=== PATIENT | male | born 1990 | race Caucasian/White ===

== ENCOUNTER 2021-10-26 17:55 | Emergency (ER) | payer BC, MEDICAID ==
[~2021-10-26] VITALS: Ht 182.8 cm; Wt 86.1 kg
[~2021-10-26 17:55] MED LIST: HYDR-4226 PO; NAPR-1071 PO
[2021-10-26 18:00] VITALS: BP 146/101
--- NOTE | 2021-10-26 18:08 | ED Fall/Injury ---
General Stated Complaint: FALL Source: patient Exam Limitations: no limitations (MUSHTAQ ZEPEDA APRN) History of Present Illness Date Seen by Provider: Oct 26, 2021 Time Seen by Provider: 18:06 Initial Comments This is a well-appearing 31-year-old male who presented to the ER via POV with his dad for concerns of elbow pain in his right elbow. States that he was at camp yesterday when he tripped and fell on the concrete. He initially applied ice today he has significant swelling and bruising to the area. Only has pain located at his elbow whenever he extends his arm out. At rest he denies any pain. Denies any numbness or tingling distal to the injury. Denies hitting his head or neck. No other injuries reported during the fall. (MUSHTAQ ZEPEDA APRN) Allergies and Home Medications Allergies Coded Allergies: No Known Drug Allergies (Unverified , 08/01/15) Patient Home Medication List Home Medication List Reviewed: Yes (MUSHTAQ ZEPEDA APRN) Hydrocodone/Acetaminophen (Hydrocodone/Acetaminophen 5 MG/325 MG TAB) 1 Each Tablet, 1 EACH PO Q4H PRN for PAIN Prescribed by: DILEEP MADISON on 08/01/15 1123 Naproxen (Naprosyn) 500 Mg Tablet, 500 MG PO BID PRN for PAIN Prescribed by: DILEEP MADISON on 08/01/15 1123 Review of Systems Review of Systems Constitutional: no symptoms reported Eyes: No Symptoms Reported Ears, Nose, Mouth, Throat: no symptoms reported Respiratory: no symptoms reported Cardiovascular: no symptoms reported Gastrointestinal: no symptoms reported Musculoskeletal: see HPI Skin: see HPI Psychiatric/Neurological: Pre-Existing Deficit (MUSHTAQ ZEPEDA APRN) Past Nineaxn-Hlortd-Kbgtkh Hx Seasonal Allergies Seasonal Allergies: No (MUSHTAQ ZEPEDA APRN) Past Medical History Eye Surgery Reproductive Disorders: No (MUSHTAQ ZEPEDA APRN) Physical Exam Vital Signs Vital Signs - First Documented (JOSE MARIA CARLSON DO) Vital Signs Capillary Refill : (MUSHTAQ ZEPEDA APRN) Height, Weight, BMI Height: 5'8" Weight: 180lbs. oz. 81.837391jv; 27.37 BMI Method: General Appearance: WD/WN, no apparent distress HEENT: PERRL/EOMI, normal ENT inspection, TMs normal, pharynx normal Neck: full range of motion, supple, normal inspection Cardiovascular: regular rate, rhythm, no murmur Respiratory: lungs clear, normal breath sounds, no respiratory distress, no accessory muscle use Peripheral Pulses: 2+ Radial Pulses (R), 2+ Radial Pulses (L) Gastrointestinal: normal bowel sounds, non tender, soft Back: normal inspection, no vertebral tenderness Neurologic/Psychiatric: no motor/sensory deficits, alert, normal mood/affect, oriented x 3 Skin: normal color, warm/dry Right Elbow: Significant swelling and bruising around elbow and proximal forearm and distal humerus. Point tenderness at Olecranon process. (MUSHTAQ ZEPEDA APRN) Progress/Results/Core Measures Results/Orders Medications Given in ED Current Medications Medications Dose Ordered Sig/German Route Start Time Stop Time Status Last Admin Dose Admin Acetaminophen/ Hydrocodone Bitart 1 ea Q6H PRN PO 10/26/21 19:00 10/26/21 19:03 DC 10/26/21 19:02 1 EA (JOSE MARIA CARLSON DO) Vital Signs/I&O 10/26/21 10/26/21 18:00 18:00 Temp 37.6 37.6 Pulse 105 105 Resp 18 18 B/P (MAP) 146/101 (116) 146/101 (116) Pulse Ox 98 98 O2 Delivery Room Air (ALDOJOSE MARIA K DO) Progress Progress Note : Progress Note Reviewed imaging with orthopedic surgeon Dr. Madera, recommended posterior long- arm splint and follow-up in office. Plan of care reviewed with dad they are agreeable with plan. We will send home with take-home pack of hydrocodone. Neurovascular intact pre and post application of splint. (MUSHTAQ ZEPEDA APRN) Diagnostic Imaging Comments [facility], [place] NAME: SANDEE SR MED REC#: [id number] PT STATUS: REG ER : 1990 PHYSICIAN: MUSHTAQ ZEPEDA APRN ADMIT DATE: 10/26/21/ER Draft Date of Exam:10/26/21 ELBOW, RIGHT, 2 VIEW INDICATION: Injury, elbow pain. EXAMINATION: Right elbow at 6:16 p.m. Three views were obtained. COMPARISON: There are no prior studies available for comparison. FINDINGS: The lateral view shows a broad fracture extending through the base of the olecranon process of the ulna. There is approximately 6 mm of diastasis between the main fracture fragments. No other fracture or acute bony abnormality is appreciated. There is elevation of both the anterior and posterior fat pads and there is generalized soft tissue edema about the elbow joint posteriorly. IMPRESSION: There is a broad displaced fracture of the base of the olecranon process. There is no acute bony abnormality noted otherwise. Dictated on workstation # [id number] Dict: 10/26/21 1819 Trans: 10/26/21 1831 [id number] Interpreted by: KETAN DOS SANTOS MD Electronically signed by: (MUSHTAQ ZEPEDA APRN) Departure Impression Primary Impression: Olecranon fracture Disposition: 01 HOME, SELF-CARE Condition: Improved Departure-Patient Inst. Decision time for Depature: 18:31 (MUSHTAQ ZEPEDA APRN) Referrals: JOSE MARIA TREVIZO MD (PCP/Family) Primary Care Physician Patient Instructions: Elbow Fracture (DC) Add. Discharge Instructions: Plan: 1. Keep splint clean and dry. May cover with bag to shower. Avoid swimming. 2. May take Tylenol as needed for pain per package. Apply ice 20 minutes at a time. 3. Follow up with Dr. Madera in his office. Please call to schedule appointment. 4. Return for any new, concerning, or worsening symptoms. [place] [facility] [address] [place] [id number] PHONE ATTENDING PHYSICIAN NOTE: I WAS PHYSICALLY PRESENT ER PHYSICIAN, BUT I WAS NOT INVOLVED IN ANY DECISION MAKING OR ANY CARE OF THIS PATIENT. (JOSE MARIA CARLSON DO) MUSHTAQ ZEPEDA APRN Oct 26, 2021 18:08 JOSE MARIA CARLSON DO Oct 26, 2021 19:58
--- NOTE | 2021-10-26 18:31 | Diagnostic Imaging Report ---
INDICATION: Injury, elbow pain. EXAMINATION: Right elbow at 6:16 p.m. Three views were obtained. COMPARISON: There are no prior studies available for comparison. FINDINGS: The lateral view shows a broad fracture extending through the base of the olecranon process of the ulna. There is approximately 6 mm of diastasis between the main fracture fragments. No other fracture or acute bony abnormality is appreciated. There is elevation of both the anterior and posterior fat pads and there is generalized soft tissue edema about the elbow joint posteriorly. IMPRESSION: There is a broad displaced fracture of the base of the olecranon process of the ulna. There is no acute bony abnormality noted otherwise. Dictated by: Dictated on workstation # [id number]
== END 2021-10-26 19:02 | disposition home or self-care (01) ==
LOC: EDUNIT# 17:55 → ER 17:58
DX: S52.021A Displaced fracture of olecranon process without intraarticular extension of right ulna, initial encounter for closed fracture (principal); W01.198A Fall on same level from slipping, tripping and stumbling with subsequent striking against other object, initial encounter; Y92.833 Campsite as the place of occurrence of the external cause
CPT/HCPCS: 29105; 73070

== ENCOUNTER → 2021-10-27 | Outpatient (CLI) | payer BC, MEDICAID ==
[~2021-10-27] MED LIST changes: +ACHD5005 PO
== END ==
LOC: ORTHO 14:09
PROVIDERS: ATTEND Orthopaedic Surgery
DX: S52.031A Displaced fracture of olecranon process with intraarticular extension of right ulna, initial encounter for closed fracture (principal); X58.XXXA Exposure to other specified factors, initial encounter
CPT/HCPCS: 99203

== ENCOUNTER 2021-10-28 05:33 | Outpatient (CLI) | payer BC, MEDICAID ==
[~2021-10-28] VITALS: Ht 180.3 cm; Wt 83.8 kg
[~2021-10-28 05:33] MED LIST changes: -ACHD5005 PO
== END 2021-10-28 10:41 | disposition home or self-care (01) ==
LOC: PREOP 05:33
PROVIDERS: ATTEND Orthopaedic Surgery
DX: Z01.818 Encounter for other preprocedural examination (principal)

== ENCOUNTER 2021-10-31 08:28 | Day surgery (SDC) | payer BC, MEDICAID ==
[~2021-10-31] VITALS: Ht 180.3 cm; Wt 83.8 kg
[2021-10-31] VITALS (10 sets, daily range): BP systolic 120–157; BP diastolic 83–105
[2021-10-31] MEDS ORDERED: ceFAZolin 2 GM IV Premixed 50 ML IV ONE (08:45)
[2021-10-31] MEDS ORDERED: LIDOCAINE PF 2% 5 ML (XYLOCAINE) VIAL ONE (08:52)
[2021-10-31] MEDS ORDERED: ONDANSETRON 4 MG/2 ML (SDV) Z0FRAN ONE (08:52)
[2021-10-31] MEDS ORDERED: fentaNYL INJ 100 MCG/2 ML AMP ONE (08:52)
[2021-10-31] MEDS ORDERED: proPOfol 200 MG/20 ML (DIPRIVAN) VIAL IV ONE (08:52)
[2021-10-31] MEDS ORDERED: MIDAZOLAM 2 MG/2 ML (VERSED) VIAL IV ONE (09:00)
[2021-10-31] MEDS: LACTATED RINGERS 1,000 ML IV PRN ×2 (09:09→10:34)
[2021-10-31] MEDS ORDERED: LIDOCAINE/EPI 2% 1:200,00 (XYLOCAINE) 20 ML VIAL ONE (09:38)
[2021-10-31] MEDS ORDERED: SEVOFLURANE (ULTANE) 15 ML INHAL SOLN ONE (11:37)
[2021-10-31] MEDS ORDERED: ACHD5005 PO ×2 (11:50)
--- NOTE | 2021-10-31 11:51 | Progress Note-Pre Operative ---
Pre-Operative Progress Note H&P Reviewed The H&P was reviewed, patient examined and no changes noted. Date Seen by Provider: Oct 31, 2021 Time Seen by Provider: : Date H&P Reviewed: Oct 31, 2021 Time H&P Reviewed: :30 Pre-Operative Diagnosis: Right Olecranon Fracture YANETH ESTRADA MD Oct 31, 2021 11:51
--- NOTE | 2021-10-31 11:58 | Operative Report - Ortho ---
Operative Report Surgeon (s)/First Assistant Manager (s) Surgeon YANETH ESTRADA MD First Assistant Manager n/a Pre-Operative Diagnosis Right Olecranon Fracture Post-Operative Diagnosis same Operative Report Date of Procedure: Oct 31, 2021 Name of Procedure Performed: Open Reduction and Internal Fixation of Right Olecranon Fracture Description & Findings After obtaining informed consent and marking the patient in the preoperative holding area, patient was administered IV antibiotics and taken to the operating room. Incision was made posteriorly. Dissection was carried down to the fracture site. Fracture site was irrigated, curretted, prepared, and provisionally reduced using a towel clamp and 2 K-wires. Initially attempts were made to use a [employer]ynthes olecranon plate however fit of the plate and screw configuration was not appropriate; plating was abandoned and tension banding was utilized. The 2 K-wires were repositioned under the joint line. A drill hole was made in the diaphyseal portion of the ulna. An 18 gauge wire was passed through the hole and configured into a figure of 8 around the 2 K-wires. Heavy needle drivers were utilized to apply tension by twisting the wire in 2 different locations. K-wires were bent and cut. Bone tamp was used to seat the K-wires. Bone tamp was also used to bury the twists in the wire. C-arm in AP and lateral planes demonstrated appropriate reduction of the fracture and good position of the tension band. Images were transferred to PACS. Wound was irrigated with normal saline. Fascial layer was closed with 0 vicryl. Subcutaneous layer was closed with 3-0 vicryl and skin was closed with 3-0 nylon. Wound was dressed with xeroform, 4x4s, ABD, cast padding, posterior splint, and JACKY wraps. Patient tolerated the procedure well and was stable to the recovery room. Anesthesia Type general Estimated Blood Loss 50 mL Specimen(s) collected/removed None YANETH ESTRADA MD Oct 31, 2021 11:58
[2021-10-31] MEDS ORDERED: HYDROmorphone 2 MG/ML VIAL (DILAUDID) IV ONE (12:00)
[2021-10-31] MEDS ORDERED: MEPERIDINE (DEMEROL) INJ 50 MG/ML IVP ONE (12:00)
[2021-10-31] MEDS ORDERED: ONDANSETRON 4 MG/2 ML (SDV) Z0FRAN IVP PRN (12:00)
[2021-10-31] MEDS ORDERED: morphine INJ 10 MG/ML 1ML (SYR OR VIAL) IVP ONE (12:00)
[2021-10-31] MEDS ORDERED: morphine INJ 10 MG/ML 1ML (SYR OR VIAL) ONE (12:15)
--- NOTE | 2021-10-31 12:45 | Anesthesia-General Post-Op ---
General Patient Condition Mental Status/LOC: Same as Preop Cardiovascular: Satisfactory Nausea/Vomiting: Absent Respiratory: Satisfactory Pain: Controlled Complications: Absent Post Op Complications Complications None Follow Up Care/Instructions Patient Instructions None needed. Anesthesia/Patient Condition Patient Condition Patient was just seen in PACU and he was doing well, no complaints, stable vital signs, no apparent adverse anesthesia problems. No complications reported per nursing. RIZWANA GAY DO Oct 31, 2021 12:45
[2021-10-31] MEDS ORDERED: HYDROcodone/APAP 5 MG/325 MG (LORTAB) TAB ONE (12:57)
[2021-10-31] MEDS ORDERED: HYDROcodone/APAP 5 MG/325 MG (LORTAB) TAB PO ONE (13:00)
--- NOTE | 2021-10-31 13:31 | Diagnostic Imaging Report ---
INDICATION: Fluoroscopy for right elbow ORIF. FINDINGS: Fluoroscopy was provided in the OR during right elbow ORIF. 28 seconds of fluoroscopic time was utilized. Two images were obtained demonstrating fixation pins and cerclage wires transfixing the olecranon fracture. The alignment is anatomic. IMPRESSION: Fluoroscopy for right elbow ORIF. Dictated by: Dictated on workstation # [id number]
== END 2021-10-31 13:40 | disposition home or self-care (01) ==
LOC: SDC 08:28
PROVIDERS: ATTEND Orthopaedic Surgery
DX: S52.021A Displaced fracture of olecranon process without intraarticular extension of right ulna, initial encounter for closed fracture (principal); W18.30XA Fall on same level, unspecified, initial encounter
CPT/HCPCS: 76000; 87081

== ENCOUNTER → 2021-12-06 | Outpatient (CLI) | payer MEDICAID ==
[~2021-12-06] MED LIST changes: +ACHD5005 PO
--- NOTE | 2021-12-06 09:10 | Diagnostic Imaging Report ---
INDICATION: Follow-up orthopedic assessment. Prior fracture. EXAMINATION: Right elbow 12/06/2021 COMPARISON: 10/26/2021. FINDINGS: There has been interval postoperative change with surgical pins traversing the previously noted displaced olecranon process fracture. Cerclage wires also noted. The fracture is in good anatomic alignment. No dislocations. No new fractures. Mild residual joint effusion noted. IMPRESSION: 1. Postoperative findings with better alignment of the olecranon fracture. Dictated by: Dictated on workstation # [id number]
== END ==
LOC: ORTHO 08:18
PROVIDERS: ATTEND Orthopaedic Surgery
DX: Z47.89 Encounter for other orthopedic aftercare (principal); Z98.890 Other specified postprocedural states; Z87.81 Personal history of (healed) traumatic fracture
CPT/HCPCS: 73080

== ENCOUNTER 2021-12-15 13:14 | Outpatient (RCR) | payer MEDICAID | END 2021-12-18 | disposition home or self-care (01) | PROVIDERS: ATTEND Orthopaedic Surgery | DX: Z09 Encounter for follow-up examination after completed treatment for conditions other than malignant neoplasm (principal); Z98.890 Other specified postprocedural states ==

== ENCOUNTER → 2022-01-10 | Outpatient (CLI) | payer MEDICAID | LOC: ORTHO 14:40 | PROVIDERS: ATTEND Orthopaedic Surgery | DX: Z47.89 Encounter for other orthopedic aftercare (principal); Z98.890 Other specified postprocedural states ==

== ENCOUNTER → 2022-01-18 | Outpatient (RCR) | payer MEDICAID | END | disposition home or self-care (01) | PROVIDERS: ATTEND Orthopaedic Surgery | DX: S52.021D Displaced fracture of olecranon process without intraarticular extension of right ulna, subsequent encounter for closed fracture with routine healing (principal); W19.XXXD Unspecified fall, subsequent encounter ==

== ENCOUNTER → 2022-02-07 | Outpatient (CLI) | payer MEDICAID ==
--- NOTE | 2022-02-07 18:20 | Diagnostic Imaging Report ---
INDICATION: Right elbow ORIF, follow-up. Time of Exam: 2:53 PM Correlation is made with prior radiograph from 12/06/2021. Pins of cerclage wire transfix the olecranon fracture. Hardware appears intact. No fracture loosening is seen. No residual fracture line is identified. Overall alignment anatomic. There is no joint effusion. IMPRESSION: Suspected postoperative changes to the proximal ulna. No complicating features are seen. Dictated by: Dictated on workstation # [id number]
== END ==
LOC: ORTHO 14:43
PROVIDERS: ATTEND Orthopaedic Surgery
DX: Z47.89 Encounter for other orthopedic aftercare (principal); Z98.890 Other specified postprocedural states
CPT/HCPCS: 73080

== ENCOUNTER 2022-02-15 10:44 | Outpatient (RCR) | payer MEDICAID | END 2022-02-15 13:34 | disposition home or self-care (01) | PROVIDERS: ATTEND Orthopaedic Surgery | DX: Z09 Encounter for follow-up examination after completed treatment for conditions other than malignant neoplasm (principal) ==